=== PATIENT | female | born 1970 | race Caucasian/White ===

== ENCOUNTER 2018-05-06 16:37 | Emergency (ER) | payer SELFPAY ==
[~2018-05-06] VITALS: Ht 160 cm; Wt 165.0 kg
[~2018-05-06 16:37] MED LIST: NOCURR
[2018-05-06 16:38] VITALS: BP 167/98
== END 2018-05-06 17:05 | disposition left against medical advice (07) ==
LOC: EMS 16:38
DX: R51 Headache (principal); Z53.21 Procedure and treatment not carried out due to patient leaving prior to being seen by health care provider